=== PATIENT | female | born 1995 | race Caucasian/White ===

== ENCOUNTER 2016-07-01 13:35 | Emergency (ER) | payer BC, OTHER ==
[~2016-07-01] VITALS: Ht 154.9 cm; Wt 83.0 kg
[2016-07-01 13:37] VITALS: BP 157/90; PULSE 82; RESP 20; TEMP 98.7; O2SAT 98
[2016-07-01 14:02] VITALS: BP 167/97; PULSE 99; RESP 16; O2SAT 100
--- NOTE | 2016-07-01 14:10 | PD ---
HPI Chief Complaint: Chest Pain Time Seen by Provider: 14:06 Travel History International Travel<30 days: No Contact w/Intl Traveler<30days: No Traveled to known affect area: No History of Present Illness HPI 21-year-old female with history of no significant past medical issues, presents to the ER today with one-day history of substernal chest tightness, worse with deep breaths and activity. She denies any coughing, fevers, leg swelling, leg pains, or any other symptoms. She currently rates the pain as an intermittent 8 out of 10. She has been on a 8 hour car trip 2 weeks ago. Modifying Factors: Worse with activity Associated Signs & Symptoms: Chest discomfort, dyspnea Risk Factors: Previous long car ride [facility] Past Medical History Medical History: Denies Significant Hx Influenza Vaccination: No ?: Unknown LMP: 06/19/16 Past Surgical History Surgical History: No Previous Surgery Social History Alcohol Use: Yes (RARELY) Tobacco Use: No Substance Use: No Review of Systems Except as stated in HPI: all other systems reviewed are Neg Physical Exam Narrative GENERAL: Well-developed young white female patient currently in mild distress. Awake and oriented 3. SKIN: Focused skin assessment warm/dry. HEAD: Atraumatic. Normocephalic. EYES: Pupils equal and round. No scleral icterus. No injection or drainage. ENT: No nasal bleeding or discharge. Mucous membranes pink and moist. NECK: Trachea midline. No JVD. CARDIOVASCULAR: Regular rate and rhythm. No murmur appreciated. RESPIRATORY: No accessory muscle use. Clear to auscultation. Breath sounds equal bilaterally. GASTROINTESTINAL: Abdomen soft, non-tender, nondistended. Hepatic and splenic margins not palpable. MUSCULOSKELETAL: No obvious deformities. No clubbing. No cyanosis. No edema. NEUROLOGICAL: Awake and alert. No obvious cranial nerve deficits. Motor grossly within normal limits. Normal speech. PSYCHIATRIC: Appropriate mood and affect; insight and judgment normal. Data Data Last Documented VS Vital Signs Date Time Temp Pulse Resp B/P Pulse Ox O2 Delivery O2 Flow Rate FiO2 07/01/16 14:36 16 100 Room Air 07/01/16 14:02 99 167/97 07/01/16 13:37 98.7 Orders Electrocardiogram (07/01/16 14:06) Ckmb (Isoenzyme) Profile (07/01/16 14:06) Complete Blood Count With Diff (07/01/16 14:06) Comprehensive Metabolic Panel (07/01/16 14:06) D-Dimer (07/01/16 14:06) Magnesium (Mg) (07/01/16 14:06) Prothrombin Time / Inr (Pt) (07/01/16 14:06) Act Partial Throm Time (Ptt) (07/01/16 14:06) Troponin I (07/01/16 14:06) Lipase (07/01/16 14:06) Chest, Single Ap (07/01/16 14:06) Ecg Monitoring (07/01/16 14:06) Bilateral Bp Monitoring (07/01/16 14:06) Iv Access Insert/Monitor (07/01/16 14:06) Oximetry (07/01/16 14:) Oxygen Administration (07/01/16 14:06) Ed Urine Pregnancytest Poc (07/01/16 14:06) Labs Laboratory Tests Test 07/01/16 14:20 White Blood Count 13.7 TH/MM3 Red Blood Count 4.88 MIL/MM3 Hemoglobin 13.0 GM/DL Hematocrit 40.0 % Mean Corpuscular Volume 82.0 FL Mean Corpuscular Hemoglobin 26.6 PG Mean Corpuscular Hemoglobin 32.4 % Concent Red Cell Distribution Width 14.0 % Platelet Count 414 TH/MM3 Mean Platelet Volume 7.9 FL Neutrophils (%) (Auto) 71.3 % Lymphocytes (%) (Auto) 21.6 % Monocytes (%) (Auto) 6.0 % Eosinophils (%) (Auto) 0.6 % Basophils (%) (Auto) 0.5 % Neutrophils # (Auto) 9.7 TH/MM3 Lymphocytes # (Auto) 2.9 TH/MM3 Monocytes # (Auto) 0.8 TH/MM3 Eosinophils # (Auto) 0.1 TH/MM3 Basophils # (Auto) 0.1 TH/MM3 CBC Comment DIFF FINAL Differential Comment Prothrombin Time 11.0 SEC Prothromb Time International 1.0 RATIO Ratio Activated Partial 31.0 SEC Thromboplast Time D-Dimer Quantitative (PE/DVT) 0.45 MG/L FEU Sodium Level 138 MEQ/L Potassium Level 3.5 MEQ/L Chloride Level 104 MEQ/L Carbon Dioxide Level 25.2 MEQ/L Anion Gap 9 MEQ/L Blood Urea Nitrogen 13 MG/DL Creatinine 0.67 MG/DL Estimat Glomerular Filtration 112 ML/MIN Rate Random Glucose 89 MG/DL Calcium Level 9.0 MG/DL Magnesium Level 1.9 MG/DL Total Bilirubin 0.5 MG/DL Aspartate Amino Transf 20 U/L (AST/SGOT) Alanine Aminotransferase 22 U/L (ALT/SGPT) Alkaline Phosphatase 104 U/L Total Creatine Kinase 94 U/L Troponin I LESS THAN 0.02 NG/ML Total Protein 7.8 GM/DL Albumin 3.8 GM/DL Lipase 72 U/L MDM Medical Decision Making Medical Screen Exam Complete: Yes Emergency Medical Condition: Yes Medical Record Reviewed: Yes Interpretation(s) Laboratory Tests Test 07/01/16 14:20 White Blood Count 13.7 TH/MM3 (4.0-11.0) Mean Corpuscular Hemoglobin 26.6 PG (27.0-34.0) Neutrophils (%) (Auto) 71.3 % (16.0-70.0) Neutrophils # (Auto) 9.7 TH/MM3 (1.8-7.7) Activated Partial 31.0 SEC Thromboplast Time (24.3-30.1) Troponin I LESS THAN 0.02 NG/ML (0.02-0.05) Lipase 72 U/L (73-393) Last 24 hours Impressions Chest X-Ray 07/01/16 1406 Signed Impressions: Service Date/Time: Friday, July 01, 2016 14:08 - CONCLUSION: No acute disease. Gus Singleton MD Differential Diagnosis Chest pains, dyspneaanxiety attack versus dysrhythmias versus ACS versus PE versus pneumonia versus pleurisy versus costochondritis Narrative Course EKG did not show any signs of acute ST-T changes. Chest x-ray is unremarkable. D-dimer is negative. Cardiac enzymes are negative. Vital signs are stable in the ER. Symptoms are fairly atypical and is sounds more musculoskeletal at this point. Her cardiovascular risk factors are and a low category risk. I have talked her regarding the findings and risk factors and she states understanding. My plan would be to treat her symptomatically with follow-up to primary care physician. Return for any worsening in symptoms as necessary. The plan has been discussed with the patient and she states understanding. Diagnosis Primary Impression: Atypical chest pain Med/Other Pt SpecificInfo: Prescription(s) given Scripts Ibuprofen (Motrin Ib)200 Mg Shy287 Mg PO Q6H PRN (PAIN SCALE 1 TO 10) #21 TAB Ref 0 Prov:Ryder Jane MD 07/01/16 Disposition: 01 DISCHARGE HOME Condition: Stable Ryder Jane MD July 01, 2016 14:10
--- NOTE | 2016-07-01 14:27 | RADRPT ---
EXAM DATE/TIME: 07/01/2016 14:08 [facility] COMPARISON: No previous studies available for comparison. INDICATIONS : Chest pain and breathing difficulty. MEDICAL HISTORY : None. SURGICAL HISTORY : None. ENCOUNTER: Initial ACUITY: 1 day PAIN SCORE: 7/10 LOCATION: Bilateral chest FINDINGS: A single view of the chest demonstrates the lungs to be symmetrically aerated without evidence of mas s, infiltrate or effusion. The cardiomediastinal contours are unremarkable. Osseous structures are intact. CONCLUSION: No acute disease. Gus Singleton MD on July 01, 2016 at 14:25 Board Certified Radiologist. This report was verified electronically.
[2016-07-01 14:36] VITALS: RESP 16; O2SAT 100
[2016-07-01 14:58] LABS: AUTOMATED NEUTROPHIL # 9.7 TH/MM3 (1.8-7.7); BASOPHIL # 0.1 TH/MM3 (0-0.2); BASOPHIL % 0.5 % (0.0-2.0); EOSINOPHIL # 0.1 TH/MM3 (0-0.4); EOSINOPHIL % 0.6 % (0.0-4.0); HEMO FLAGS DIFF FINAL; LYMPH % 21.6 % (9.0-44.0); LYMPHOCYTE # 2.9 TH/MM3 (1.0-4.8); MEAN CORPUSCULAR HEMOGLOBIN 26.6 PG (27.0-34.0); MEAN CORPUSCULAR HGB CONC 32.4 % (32.0-36.0); NEUT % 71.3 % (16.0-70.0); PLATELET COUNT 414 TH/MM3 (150-450); RED BLOOD COUNT 4.88 MIL/MM3 (4.00-5.30); WHITE BLOOD COUNT 13.7 TH/MM3 (4.0-11.0)
[2016-07-01 15:33] LABS: ANION GAP 9 MEQ/L (5-15); AST (GOT) 20 U/L (16-38); BICARBONATE 25.2 MEQ/L (21.0-32.0); BLOOD UREA NITROGEN 13 MG/DL (7-18); CHLORIDE 104 MEQ/L (98-107); GLOMERULAR FILTRATION RATE 112 ML/MIN (>89); MAGNESIUM 1.9 MG/DL (1.5-2.5); POTASSIUM 3.5 MEQ/L (3.5-5.1); SODIUM (NA) 138 MEQ/L (136-145)
[2016-07-01 15:36] LABS: ALKALINE PHOSPHATASE 104 U/L (45-117); ALT (GPT) 22 U/L (9-42); TOTAL BILIRUBIN ADULT 0.5 MG/DL (0.2-1.0)
[2016-07-01 15:38] LABS: CREATINE KINASE 94 U/L (26-192)
[2016-07-01] MEDS ORDERED: MOTR200T4 PO (15:54)
--- NOTE | 2016-07-02 11:24 | EKG ---
Date Performed: 07/01/2016 Time Performed: 14:09:21 PTAGE: 21 years EKG: Sinus rhythm NORMAL ECG NO PREVIOUS TRACING DOCTOR: Cody Meadows Interpretating Date/Time 07/02/2016 11:19:30
== END 2016-07-01 16:13 | disposition home or self-care (01) ==
LOC: NEPD 13:35
DX: R07.89 Other chest pain (principal); R06.00 Dyspnea, unspecified
CPT/HCPCS: 71010; 80053; 82550; 83690; 83735; 84484; 85025; 85379; 85610; 85730; 93005